=== PATIENT | female | born 1965 | race Caucasian/White ===

== ENCOUNTER → 2023-10-19 18:05 | Outpatient (REF) | payer OTHER, SELFPAY | LOC: WDC 18:05 | PROVIDERS: ATTENDING PHYSICIAN Obstetrics & Gynecology; FAMILY PHYSICIAN Family Medicine | DX: Z12.31 Encounter for screening mammogram for malignant neoplasm of breast (principal) | CPT/HCPCS: 77063; 77067 ==

== ENCOUNTER 2024-03-16 06:28 | Day surgery (SDC) | payer OTHER, SELFPAY ==
[2024-03-02 12:46] VITALS: BMI 18.7
[2024-03-16] VITALS (9 sets, daily range): BP systolic 99–133; BP diastolic 50–68
[2024-03-16] MEDS: NORMOSOL-R 1000 IV (10:02)
[2024-03-16] MEDS: TRANSDERM-SCOP 1 PATCH TRANSDERM (10:31)
[2024-03-16 11:16] LABS: Calcium 11.4 mg/dl (8.4-10.2)
[2024-03-16 11:29] LABS: Intact PTH 206.8 pg/ml (13.6-85.8)
== END 2024-03-16 17:10 | disposition home or self-care (01) ==
LOC: SDS 06:28
PROVIDERS: ATTENDING PHYSICIAN Otolaryngology; FAMILY PHYSICIAN Family Medicine
DX: D34 Benign neoplasm of thyroid gland (principal); D35.1 Benign neoplasm of parathyroid gland; E83.52 Hypercalcemia
CPT/HCPCS: 60220; 60500; 88307; 36415; 83970; 93005

== ENCOUNTER → 2025-04-05 10:56 | Outpatient (REF) | payer OTHER, SELFPAY | LOC: HWRAD 10:56 | PROVIDERS: ATTENDING PHYSICIAN Otolaryngology; FAMILY PHYSICIAN Student in an Organized Health Care Education/Training Program | DX: D49.7 Neoplasm of unspecified behavior of endocrine glands and other parts of nervous system (principal) | CPT/HCPCS: 76536 ==

== ENCOUNTER → 2025-05-03 19:49 | Outpatient (REF) | payer OTHER, SELFPAY | LOC: WDC 19:49 | PROVIDERS: ATTENDING PHYSICIAN Student in an Organized Health Care Education/Training Program | DX: Z12.31 Encounter for screening mammogram for malignant neoplasm of breast (principal) | CPT/HCPCS: 77063; 77067 ==